=== PATIENT | female | born 1970 | race Caucasian/White ===

== ENCOUNTER 2016-06-11 10:58 | Emergency (ER) | payer OTHER ==
--- NOTE | 2016-06-11 12:15 | DIAGNOSTIC IMAGING REPORT ---
PROCEDURE: XR TOE - LEFT INDICATION: TRAUMA/INJURY TECHNIQUE: A P foot and two views of the left third toe. COMPARISON: None. FINDINGS: Normal mineralization. No fractures. Normal osseous alignment. No suspicious soft-tissue calcification or radiodense foreign bodies. IMPRESSION: 1. Intact foot and left third toe.
--- NOTE | 2016-06-11 13:11 | ED ORDER SUMMARY ---
..... Patient: ADAIR ALVARADO OrderSheet [facility] VisitID: [id number] [place] [address] 45y, F Registration Date/Time: 06/11/2016 ORDER SHEET Weight: 136.9 kg (stated) Allergies: Amoxicillin, Cephalosporins GENERAL ORDERS: Toe Left (3rd toe) Urgent (11:23 06/11/2016 Vijaya R.NKimberly verbal order read back to Meli Rodriguez) (Ack 11:24 Marixa) (11:40 Vijaya R.N.) Clarence Tape Toes (13:10 06/11/2016 Mary Ann A.R.N.PKimberly) (13:34 Vijaya R.N.) MEDICATION ORDERS: IV FLUIDS: ORDER SHEET NOTES: [Electronically signed by Gem EliseRKimberlyN.PKimberly (13:41 06/11/2016)] [Electronically signed by Selene Cosby R.N. (13:46 06/11/2016)] [Electronically locked/signed by Selene Cosby R.N. (13:46 06/11/2016)]
--- NOTE | 2016-06-11 13:11 | ED NURSING NOTES ---
Clinical Report - [facility] [place] [address] 06/11/2016 11:01 [id number] Triage time 11:10. Acuity: LEVEL 4. Chief Complaint: LACERATION. Alert. No acute distress. DEJON COMA SCORE: [place] Coma Scale: 15- eyes open spontaneously (4); best verbal response- oriented x 4 (5); best motor response- obeys commands (6). --11:15 Selene Cosby R.N. 11:10 06/11/16. BP: 118/76. HR: 80. RR: 16. O2 saturation: 98%. Temp: 98.2 F. Pain level now 5/10. --11:15 Selene Cosby R.N. Weight: 136.9 kg stated. Height/Length: 67 inches Per Patient. BMI: 47.3. --11:15 Selene Cosby R.N. Medications Diethylpropion HCl Oral. --11:12 Selene Cosby R.N. Allergies Amoxicillin. Cephalosporins. --11:12 Selene Cosby R.N. History Arrived by private vehicle. Historian: patient. Accompanied by family. Primary physician ([place]). Location of injuries: left third toe. This occurred today. ( patient was walking down her steps at home and the board broke and cut her foot). Treatment FINANCIAL REP: Performed wound care and applied bandage. PAST MEDICAL HX: Last tetanus: (8 years). SOCIAL HX: Never smoker. Occasional alcohol use. No drug use. FALL RISK ASSESSMENT: Fall risk assessment completed. No fall risk identified. NUTRITIONAL RISK ASSESSMENT: The nutritional risk assessment revealed no deficiencies. FUNCTIONAL ASSESSMENT: Functional assessment: no impairments noted. LEARNING NEEDS ASSESSMENT: The learning needs assessment revealed no barriers. SKIN INTEGRITY ASSESSMENT: Skin integrity risk assessment completed. No skin integrity risk identified. --11:15 Selene Cosby R.N. PROBLEMS: no known problems. ADDITIONAL SURGERIES: Carpal Tunnel Surgery. . Hysterectomy. Knee Surgery. Laparoscopy. --11:13 Selene Cosby R.N. Interventions ID band on patient. To room. --11:15 Selene Cosby R.N. PHYSICAL ASSESSMENT Ambulatory to room. GENERAL / NEURO / PSYCH: Alert. RESPIRATORY: Respirations not labored. CVS: Pulses within normal limits. Capillary refill less than 2 seconds. GI / : Abdomen soft. EXTREMITIES: Left third toe: subcutaneous 1.5 cm laceration with bleeding of the volar aspect. SKIN: Skin is warm. --11:16 Selene Cosby R.N. NURSING PROGRESS NOTES Two patient identifiers checked. Call light placed in reach. Side rails up x 1. Bed placed in lowest position. Brakes of bed on. Patient ready for evaluation- chart flagged. --11:16 Selene Cosby R.N. 11:33 06/11/16. WOUND REPAIR: Preparation. Wound cleansed with Hibiclens (soak). --11:33 Selene Cosby R.N. 11:35 06/11/16. Portable x-ray performed. --11:35 Selene Cosby R.N. 12:48 06/11/16. WOUND REPAIR: Wound repair performed by CERTIFIED OPHTHALMIC SURGICAL ASSISTANT. Assisted by one nurse. Preparation: suture tray set-up. --12:48 Selene Cosby R.N. ( jaime taped toes with talfa pad). --13:35 Selene Cosby R.N. DISPOSITION / DISCHARGE Departure time: 1325. No learning barriers present. Discharge instructions provided and reviewed with the patient. Reviewed wound care instructions. Patient verbalized understanding. Written instructions provided in Slovak. The patient was discharged home and accompanied by family. She left the Emergency Department ambulatory and via private vehicle. Family member driving. --13:36 Selene Cosby R.N. 13:35 06/11/16. BP: 142/98. HR: 96. RR: 16. O2 saturation: 98%. --13:36 Selene Cosby R.N. Locked/Released at 06/11/2016 13:46 by Selene Cosby R.N.
--- NOTE | 2016-06-11 13:11 | ED CLINICAL REPORT ---
Clinical Report - Physicians/Mid Levels Located Within [facility] [address] [place] [address] 06/11/2016 11:01 Patient: ADAIR ALVARADO Time Seen: 11:16; initial patient contact. Arrived- By private vehicle. Historian- patient. HISTORY OF PRESENT ILLNESS Chief Complaint: Injury to the left 3rd toe. The injury happened just prior to arrival. Occurred at home. The patient sustained a laceration from a sharp edge (broken step - wood). Patient is experiencing moderate pain. Patient denies injury to the head or neck. No other injury. REVIEW OF SYSTEMS The patient sustained a laceration. No swelling, tingling, weakness, numbness or suspected foreign body. She has no pain on weight bearing. All systems otherwise negative, except as recorded above. PAST HISTORY See nurses notes. PROBLEMS: no known problems. ADDITIONAL SURGERIES: Carpal Tunnel Surgery. . Hysterectomy. Knee Surgery. Laparoscopy. --11:13 Selene Cosby R.N. Tetanus immunization status is up-to-date. SOCIAL HISTORY Never smoker. Occasional alcohol use. No drug use. No recent travel. Is a local resident. FAMILY HISTORY No significant family medical history. ADDITIONAL NOTES The nursing notes have been reviewed with agreement regarding the chief complaint, HPI, ROS, PMH and patient medications and allergies. PHYSICAL EXAM Vital Signs: 06/11/2016 11:10 BP: 118/76. HR: 80. RR: 16. O2 saturation: 98%. Temp: 98.2 F. Have been reviewed as normal and appear to be correct. Appearance: Alert. Oriented X3. No acute distress. Head: Head atraumatic. Eyes: Pupils equal, round and reactive to light. Eyes normal inspection. Respiratory: No respiratory distress. Skin: Skin intact. Skin warm and dry. Extremities: Foot injury present. Left third toe: mild tenderness and subcutaneous 1.0 cm laceration of the plantar aspect and distal phalanx- SEE LACERATION PROCEDURE NOTE #1. Neurovascular intact distally. No erythema, swelling, abrasion, ecchymosis or puncture wound. No foreign body or deformity. No limitation in movement. No subungual hematoma or amputation present. No ankle injury. Foot and ankle exam otherwise negative. Extremities otherwise negative. Neuro, Vascular and Tendons: Vascular status intact. Sensation intact. Motor intact. Tendon function intact. Gait: Abnormal gait. (gait not tested). Neuro: Oriented X 3. No motor deficit. No sensory deficit. Note: isolated injury to toe. LABS, X-RAYS, AND EKG X-Rays: Left foot negative. Lt Foot X-ray: (IMPRESSION: 1. Intact foot and left third toe. Electronically Final signed by:Good Guillen MD 06/11/2016 12:16:10 PM). The X-rays were interpreted by the radiologist. PROGRESS AND PROCEDURES Laceration Repair: Location: left third toe. Length: 1 cm. Complexity: simple (closed with tissue adhesive). Wound depth/shape- subcutaneous and linear and involving fascia. Wound is clean. No contamination, foreign body or contused tissue present. No tissue loss. Distal neuro/vascular/tendon status normal. Tendon not examined. No tendon deficit or laceration or tendon injury. Prepped with Betadine. Wound cleansed and irrigated with normal saline. Wound not explored, debrided or examined to the base in bloodless field. No foreign material removed. Closure of superficial layer: (dermabond). Skin adhesive used. Post-procedure: she is stable and there are no complications. Bleeding is controlled and neuro-vascular status is intact distal to the wound. Tetanus immunization up-to-date. Estimated blood loss: 2 mL. Patient counseled in person regarding the patient's stable condition, test results and diagnosis. Differential Diagnosis: Other possible considerations: toe lac, fb, tendon injury, skin avulsion. Above considerations are based on history, physical exam and X-Ray data. Differential diagnosis was discussed with patient. Disposition: Discharged home in good and improved condition (13:11). Condition: good and stable. CLINICAL IMPRESSION Single deep laceration to the left 3rd toe.Treatment of laceration not delayed. No infection, foreign body present or left toenail injury. INSTRUCTIONS Clarence tape toes for one weeks until better. Protect wound and keep wound area clean. Soak in warm soapy water twice daily. Warnings: GENERAL WARNINGS: Return or contact your physician immediately if your condition worsens or changes unexpectedly, if not improving as expected, or if other problems arise. Specifically return if problem worsens. Understanding of the discharge instructions verbalized by patient. (Electronically signed by Gem Elise A.R.N.P. 06/11/2016 13:41)
--- NOTE | 2016-06-11 13:11 | ED NURSING NOTES ---
Clinical Report - Nurses [facility] [place] [address] 06/11/2016 11:01 [id number] Triage time 11:10. Acuity: LEVEL 4. Chief Complaint: LACERATION. Alert. No acute distress. DEJON COMA SCORE: [place] Coma Scale: 15- eyes open spontaneously (4); best verbal response- oriented x 4 (5); best motor response- obeys commands (6). --11:15 Selene Cosby R.N. 11:10 06/11/16. BP: 118/76. HR: 80. RR: 16. O2 saturation: 98%. Temp: 98.2 F. Pain level now 5/10. --11:15 Selene Cosby R.N. Weight: 136.9 kg stated. Height/Length: 67 inches Per Patient. BMI: 47.3. --11:15 Selene Cosby R.N. Medications Diethylpropion HCl Oral. --11:12 Selene Cosby R.N. Allergies Amoxicillin. Cephalosporins. --11:12 Selene Cosby R.N. History Arrived by private vehicle. Historian: patient. Accompanied by family. Primary physician ([place]). Location of injuries: left third toe. This occurred today. ( patient was walking down her steps at home and the board broke and cut her foot). Treatment SALICYLIC ACID BLENDER: Performed wound care and applied bandage. PAST MEDICAL HX: Last tetanus: (8 years). SOCIAL HX: Never smoker. Occasional alcohol use. No drug use. FALL RISK ASSESSMENT: Fall risk assessment completed. No fall risk identified. NUTRITIONAL RISK ASSESSMENT: The nutritional risk assessment revealed no deficiencies. FUNCTIONAL ASSESSMENT: Functional assessment: no impairments noted. LEARNING NEEDS ASSESSMENT: The learning needs assessment revealed no barriers. SKIN INTEGRITY ASSESSMENT: Skin integrity risk assessment completed. No skin integrity risk identified. --11:15 Selene Cosby R.N. PROBLEMS: no known problems. ADDITIONAL SURGERIES: Carpal Tunnel Surgery. . Hysterectomy. Knee Surgery. Laparoscopy. --11:13 Selene Cosby R.N. Interventions ID band on patient. To room. --11:15 Selene Cosby R.N. PHYSICAL ASSESSMENT Ambulatory to room. GENERAL / NEURO / PSYCH: Alert. RESPIRATORY: Respirations not labored. CVS: Pulses within normal limits. Capillary refill less than 2 seconds. GI / : Abdomen soft. EXTREMITIES: Left third toe: subcutaneous 1.5 cm laceration with bleeding of the volar aspect. SKIN: Skin is warm. --11:16 Selene Cosby R.N. NURSING PROGRESS NOTES Two patient identifiers checked. Call light placed in reach. Side rails up x 1. Bed placed in lowest position. Brakes of bed on. Patient ready for evaluation- chart flagged. --11:16 Selene Cosby R.N. 11:33 06/11/16. WOUND REPAIR: Preparation. Wound cleansed with Hibiclens (soak). --11:33 Selene Cosby R.N. 11:35 06/11/16. Portable x-ray performed. --11:35 Selene Cosby R.N. 12:48 06/11/16. WOUND REPAIR: Wound repair performed by PLATE SETTER. Assisted by one nurse. Preparation: suture tray set-up. --12:48 Selene Cosby R.N. ( jaime taped toes with talfa pad). --13:35 Selene Cosby R.N. DISPOSITION / DISCHARGE Departure time: 1325. No learning barriers present. Discharge instructions provided and reviewed with the patient. Reviewed wound care instructions. Patient verbalized understanding. Written instructions provided in Danish. The patient was discharged home and accompanied by family. She left the Emergency Department ambulatory and via private vehicle. Family member driving. --13:36 Selene Cosby R.N. 13:35 06/11/16. BP: 142/98. HR: 96. RR: 16. O2 saturation: 98%. --13:36 Selene Cosby R.N. Locked/Released at 06/11/2016 13:46 by Selene Cosby R.N.
--- NOTE | 2016-06-11 13:11 | ED ORDER SUMMARY ---
..... Patient: ADAIR ALVARADO OrderSheet [facility] VisitID: [id number] [place] [address] 45y, F Registration Date/Time: 06/11/2016 ORDER SHEET Weight: 136.9 kg (stated) Allergies: Amoxicillin, Cephalosporins GENERAL ORDERS: Toe Left (3rd toe) Urgent (11:23 06/11/2016 Vijaya R.NKimberly verbal order read back to Meli Rodriguez) (Ack 11:24 Marixa) (11:40 Vijaya R.N.) Clarence Tape Toes (13:10 06/11/2016 Mary Ann A.R.N.PKimberly) (13:34 Vijaya R.N.) MEDICATION ORDERS: IV FLUIDS: ORDER SHEET NOTES: [Electronically signed by Gem EliseRKimberlyN.PKimberly (13:41 06/11/2016)] [Electronically signed by Selene Cosby R.N. (13:46 06/11/2016)] [Electronically locked/signed by Selene Cosby R.N. (13:46 06/11/2016)]
--- NOTE | 2016-06-11 13:46 | ED DISCHARGE INSTRUCTIONS ---
Patient: ADAIR ALVARADO General Instructions [facility] VisitID: [id number] [place] [address] 45y, F Registration Date/Time: 06/11/2016 Single deep laceration to the left 3rd toe.Treatment of laceration not delayed. No infection, foreign body present or left toenail injury. INSTRUCTIONS Clarence tape toes for one weeks until better. Protect wound and keep wound area clean. Soak in warm soapy water twice daily. Warnings: GENERAL WARNINGS: Return or contact your physician immediately if your condition worsens or changes unexpectedly, if not improving as expected, or if other problems arise. Specifically return if problem worsens. Understanding of the discharge instructions verbalized by patient. ADDITIONAL INFORMATION Laceration (All Closures) Alaceration is a cut through the skin. This will usually require stitches (sutures) or salome if it is deep. Minor cuts may be treated with a surgical tape closure orskin glue. Home care The following guidelines will help you care for your laceration at home: Extremity, face, or trunk wounds Keep the wound clean and dry. If a bandage was applied and it becomes wet or dirty, replace it. Otherwise, leave it in place for the first 24 hours. If stitches or salome were used, clean the wound daily. After removing the bandage, wash the area with soap and water. Use a wet cotton swab to loosen and remove any blood or crust that forms. The doctor may prescribe an antibiotic cream or ointment to prevent infection. Do not stop taking this medication until you have finished the prescribed course or the doctor tells you to stop. The doctor may also prescribe medications for pain. Follow the doctors instructions for taking these medications. You may remove the bandage to shower as usual after the first 24 hours, but do not soak the area in water (no swimming) until the stitches or salome are removed. If surgical tape was used, keep the area clean and dry. If it becomes wet, blot it dry with a towel. If skin glue was used, do not scratch, rub, or pick at the adhesive film. Do not place tape directly over the film. Do not apply liquid, ointment, or creams to the wound while the film is in place. Do not clean the wound with peroxide and do not apply ointments. Avoid activities that cause heavy sweating until the film has fallen off. Protect the wound from prolonged exposure to sunlight or tanning lamps. You may shower as usual but do not soak the wound in water (no baths or swimming). The film will fall off by itself in 510 days. Scalp wounds During the first two days, you may carefully rinse your hair in the shower to remove blood, glass or dirt particles. After two days, you may shower and shampoo your hair normally. Do not soak your scalp in the tub or go swimming until the stitches or salome have been removed. Talk with your doctor before applying any antibiotic ointment to the wound. Mouth wounds Eat soft foods to reduce pain. If the cut is inside of your mouth, clean by rinsing after each meal and at bedtime with a mixture of equal parts water and hydrogen peroxide (do not swallow!). Or, you can use a cotton swab to directly apply hydrogen peroxide onto the cut. Mouth wounds can be painful when eating. You may use an pzao-[id number]-[id number] local numbing solution for pain relief. If this is not available, you may use any numbing solution for teething babies. You may apply this directly to the sores with a cotton-tip swab or with your finger. Follow-up care Follow up with your health care provider. Most skin wounds heal within ten days. Mouth and facial wounds heal within five days. However, even with proper treatment, a wound infection may sometimes occur. Therefore, you should check the wound daily for signs of infection listed below. Stitches should be removed from the face within five days; stitches and salome should be removed from other parts of the body within 714 days. If dissolving stitches were used in the mouth, these will fall out or dissolve without the need for removal. If tape closures were used, remove them yourself if they have not fallen off after 7 days. Ifskin glue was used, the film will fall off by itself in 510 days. When to seek medical care Get prompt medical attention if any of these occur: Bleeding not controlled by direct pressure Signs of infection, including increasing pain in the wound, increasing wound redness or swelling, or pus coming from the wound Fever of 100.4F (38C) or higher, or as directed by your health care provider Stitches or salome come apart or fall out or surgical tape falls off before 7 days Wound edges re-open Laceration, Extremity (Sutures, [place], Or Tape) A laceration is a cut through the skin. This will usually require stitches (sutures) or salome if it is deep. Minor cuts may be treated with surgical tape closures. Home care The following guidelines will help you care for your laceration at home: Keep the wound clean and dry. If a bandage was applied and it becomes wet or dirty, replace it. Otherwise, leave it in place for the first 24 hours, then change it once a day or as directed. If stitches or salome were used, clean the wound daily: After removing the bandage, wash the area with soap and water. Use a wet cotton swab to loosen and remove any blood or crust that forms. After cleaning, keep the wound clean and dry. Talk with your doctor before applying any antibiotic ointment to the wound. Reapply the bandage. You may remove the bandage to shower as usual after the first 24 hours, but do not soak the area in water (no swimming) until the stitches or salome are removed. If surgical tape closures were used, keep the area clean and dry. If it becomes wet, blot it dry with a towel. The doctor may prescribe an antibiotic cream or ointment to prevent infection. Do not stop taking this medication until you have finished the prescribed course or the doctor tells you to stop. The doctor may also prescribe medications for pain. Follow the doctors instructions for taking these medications. If you have chronic liver or kidney disease or ever had a stomach ulcer or GI bleeding, talk with your doctor before using these medicines. Follow-up care Follow up with your health care provider. Most skin wounds heal within ten days. However, an infection may sometimes occur despite proper treatment. Therefore, check the wound daily for the signs of infection listed below. Stitches and salome should be removed within 714 days. If surgical tape closures were used, you may remove them after 10 days, if they have not fallen off by then. Notify your doctor if you notice persistent numbness or weakness in the injured extremity. (Note:A radiologist will review any X-rays that were taken. We will notify you of any new findings that may affect your care.) When to seek medical care Get prompt medical attention if any of these occur: Increasing pain in the wound Redness, swelling, or pus coming from the wound Fever of 100.4F (38C) or higher, or as directed by your health care provider If stitches or salome come apart or fall out before your next appointment If the surgical tape closures fall off within seven days, or the wound edges re-open Bleeding not controlled by direct pressure You have been given the following additional information: Laceration, All Laceration, Extrem (Suture, Staple, Or Tape) (Electronically signed by Gem Elise A.R.N.P. 06/11/2016 13:41)
--- NOTE | 2016-06-11 13:47 | ED MAR SUMMARY ---
..... Medication Administration Record [facility] [address] [place], [place] [id number] Patient: ADAIR ALVARADO Visit ID: [id number] 45y, F Weight: 136.9 kg Height/Length: 67 in BMI: 47.3 ALLERGIES: Cephalosporins, Amoxicillin
--- NOTE | 2016-06-11 13:47 | ED MAR SUMMARY ---
..... Medication Administration Record [facility] [address] [place], [place] [id number] Patient: ADAIR ALVARADO Visit ID: [id number] 45y, F Weight: 136.9 kg Height/Length: 67 in BMI: 47.3 ALLERGIES: Cephalosporins, Amoxicillin
--- NOTE | 2016-06-11 13:47 | ED MED RECONCILIATION SUMMARY ---
Patient: ADAIR ALVARADO Medication Reconciliation Report [facility] VisitID: [id number] [address] [place] [address] 45y, F Registration Date/Time: 06/11/2016 Weight: 136.9 kg Height/Length: 67 in. BMI: 47.3 ALLERGIES: Amoxicillin, Cephalosporins The patient's Home Medications are listed below: THE FOLLOWING MEDICATIONS NEED TO BE RECONCILED: Diethylpropion HCl Oral The source(s) of the original Home Medication information: Not obtained. The following Medications were given to the patient in the Emergency Department: None. The following Medications were prescribed to the patient: None.
--- NOTE | 2016-06-11 13:47 | ED MED RECONCILIATION SUMMARY ---
Patient: ADAIR ALVARADO Medication Reconciliation Report [facility] VisitID: [id number] [address] [place] [address] 45y, F Registration Date/Time: 06/11/2016 Weight: 136.9 kg Height/Length: 67 in. BMI: 47.3 ALLERGIES: Amoxicillin, Cephalosporins The patient's Home Medications are listed below: THE FOLLOWING MEDICATIONS NEED TO BE RECONCILED: Diethylpropion HCl Oral The source(s) of the original Home Medication information: Not obtained. The following Medications were given to the patient in the Emergency Department: None. The following Medications were prescribed to the patient: None.
== END 2016-06-11 13:25 | disposition home or self-care (01) ==
LOC: ED SRH 10:58
DX: S91.115A Laceration without foreign body of left lesser toe(s) without damage to nail, initial encounter (principal); W26.8XXA Contact with other sharp object(s), not elsewhere classified, initial encounter; Y93.01 Activity, walking, marching and hiking; Y99.9 Unspecified external cause status; Y92.009 Unspecified place in unspecified non-institutional (private) residence as the place of occurrence of the external cause; Z88.1 Allergy status to other antibiotic agents